=== PATIENT | male | born 1965 ===

== ENCOUNTER 2018-04-23 14:46 | Outpatient (CLI) | payer OTHER | END 2018-04-23 15:00 | disposition home or self-care (01) | LOC: OFIC 805 14:46 | DX: G47.33 Obstructive sleep apnea (adult) (pediatric) (principal); R09.81 Nasal congestion; K21.9 Gastro-esophageal reflux disease without esophagitis; R51 Headache ==

== ENCOUNTER 2018-09-07 13:43 | Outpatient (CLI) | payer OTHER ==
[~2018-09-07] VITALS: Ht 152.4 cm; Wt 117.5 kg
== END 2018-09-07 13:55 | disposition home or self-care (01) ==
LOC: OFIC 805 13:43
DX: K21.0 Gastro-esophageal reflux disease with esophagitis (principal); G47.33 Obstructive sleep apnea (adult) (pediatric); R09.81 Nasal congestion

== ENCOUNTER 2018-11-30 10:45 | Outpatient (CLI) | payer OTHER ==
[~2018-11-30] VITALS: Ht 152.4 cm; Wt 117.5 kg
== END 2018-11-30 11:00 | disposition home or self-care (01) ==
LOC: OFIC 805 10:45
DX: G47.33 Obstructive sleep apnea (adult) (pediatric) (principal); H74.8X3 Other specified disorders of middle ear and mastoid, bilateral; K21.0 Gastro-esophageal reflux disease with esophagitis